=== PATIENT | female | born 1955 | race Caucasian/White ===

== ENCOUNTER 2019-10-22 13:46 | Outpatient (CLI) | payer MEDICARE, OTHER ==
--- NOTE | 2019-10-22 16:05 | BD ---
DEXA BONE DENSITY STUDY: HISTORY: Postmenopausal. LUMBAR SPINE BMD (g/cm2) T-SCORE L1 0.896 -0.9 L2 0.926 -0.9 L3 1.017 -0.6 L4 1.043 -0.2 TOTAL 0.975 -0.7 LEFT FEMORAL NECK 0.679 -1.5 TOTAL 0.864 -0.6 IMPRESSION: 1. Osteopenia of the left femoral neck and normal bone mineral density of the lumbar spine. 2. The 10 year fracture risk for a major osteoporotic fracture is 9.1% and for a hip fracture is 1.1% . These fracture probabilities are calculated for an untreated patient. POS: [facility]
== END 2019-10-22 13:47 | disposition home or self-care (01) ==
LOC: BICMAMMO 13:46
PROVIDERS: ATTEND Nurse Practitioner Family
DX: Z13.820 Encounter for screening for osteoporosis (principal); M85.852 Other specified disorders of bone density and structure, left thigh
CPT/HCPCS: 77080

== ENCOUNTER 2021-09-21 10:33 | Outpatient (CLI) | payer MEDICARE, OTHER | END 2021-09-21 10:34 | disposition home or self-care (01) | LOC: RAD-FRANK 10:33 | PROVIDERS: ATTEND Nurse Practitioner Family | DX: M79.644 Pain in right finger(s) (principal) ==

== ENCOUNTER 2021-10-27 11:24 | Outpatient (CLI) | payer MEDICARE, OTHER | END 2021-10-27 11:25 | disposition home or self-care (01) | LOC: BICMAMMO 11:24 | PROVIDERS: ATTEND Nurse Practitioner Family | DX: Z12.31 Encounter for screening mammogram for malignant neoplasm of breast (principal) | CPT/HCPCS: 77063; 77067 ==